=== PATIENT | male | born 1995 | race Hispanic/Latino ===

== ENCOUNTER 2018-09-27 09:40 | Emergency (ER) | payer OTHER ==
[2018-09-27 09:45] VITALS: BP 129/72
--- NOTE | 2018-09-27 11:37 | Emergency Department Report ---
ED Extremity Problem HPI - General Chief complaint: Extremity Problem,Nontraumatic Stated complaint: SWOLLEN R LEG Time Seen by Provider: 09/27/18 11:27 Source: patient Mode of arrival: Ambulatory Limitations: No Limitations - History of Present Illness Initial comments: 23-year-old man who was seen prior for right leg swelling and redness. Patient reports that he's been taking his antibiotics as prescribed. Patient reports that he was walking near the hospital and wanted to come in to have a Band-Aid. Patient feels that he has improved. Patient has no known drug allergies. Past medical history of hepatitis C. MD Complaint: extremity pain, extremity swelling Location: right History of Same: Yes Severity scale (0 -10): 6 Consistency: intermittent Associated Symptoms: denies other symptoms - Related Data Allergies Allergy/AdvReac Type Severity Reaction Status Date / Time No Known Allergies Allergy Unverified 09/27/18 09:44 ED Review of Systems ROS: Stated complaint: SWOLLEN R LEG Other details as noted in HPI Comment: All other systems reviewed and negative ED Past Medical Hx - Past Medical History Previous Medical History?: Yes Additional medical history: Hep C - Surgical History Past Surgical History?: No - Social History Smoking Status: Never Smoker Substance Use Type: None ED Physical Exam - General Limitations: No Limitations General appearance: alert, in no apparent distress - Head Head exam: Present: atraumatic, normocephalic - Eye Eye exam: Present: normal appearance - ENT ENT exam: Present: mucous membranes moist - Expanded Lower Extremity Exam Right Upper Leg exam: Present: normal inspection Knee exam: Present: normal inspection Lower Leg exam: Present: normal inspection Ankle exam: Present: normal inspection Foot/Toe exam: Present: full ROM, erythema (mild patient has been outlined of his cellulitis and the swelling and redness is decreasing. There is no purulent discharge from the wound.). Absent: tenderness, swelling ED Course Vital Signs 09/27/18 09:44 Temperature 98 F Pulse Rate 72 Respiratory 18 Rate Blood Pressure 129/72 O2 Sat by Pulse 100 Oximetry ED Medical Decision Making - Medical Decision Making Patient has been evaluated by this provider fast track. Discussed the patient to continue taking antibiotics. Recommend patient to obtain his Band-Aids from the App in the [employer] store and not coming back to the emergency room chest for Band-Aids as this is very costly to him. Patient verbalizes understanding. Critical care attestation.: If time is entered above; I have spent that time in minutes in the direct care of this critically ill patient, excluding procedure time. ED Disposition Clinical Impression: Ankle edema Disposition: - TO HOME OR SELFCARE Is pt being admited?: No Does the pt Need Aspirin: No Condition: Stable Additional Instructions: Continue with antibiotics and pain medication. Change her dressing daily. Follow up with a primary care provider for symptoms persist or gets worse. Referrals: LAURA PETERSON MD [Primary Care Provider] - 3-5 Days
== END 2018-09-27 12:48 | disposition home or self-care (01) ==
LOC: ED 09:40
DX: R60.0 Localized edema (principal); Z88.1 Allergy status to other antibiotic agents
CPT/HCPCS: 99281

== ENCOUNTER 2018-09-27 22:13 | Emergency (ER) | payer OTHER ==
--- NOTE | 2018-09-27 22:32 | Emergency Department Report ---
Blank Doc - Documentation Documentation: 23 y/o male with multiple visits here. Come back for depression. Denies any SI./HI.
[2018-09-28 00:03] LABS: Bacteria,Urine 1+ /HPF (Negative); Bilirubin,Urine NEG (Negative); Blood,Urine NEG (Negative); Color,Urine Yellow (Yellow); Mucus,Urine FEW /HPF
[2018-09-28 00:23] LABS: Amphetamine Screen,Urine PRESUMPTIVE NEGATIVE; Benzodiazepines Screen,Urine PRESUMPTIVE NEGATIVE; Cocaine Screen,Urine PRESUMPTIVE NEGATIVE; Methadone Screen,Urine PRESUMPTIVE NEGATIVE; Opiate Screen,Urine PRESUMPTIVE NEGATIVE
[2018-09-28] MEDS ORDERED: ANTIBIOTIC OINT TP STA (00:36)
[2018-09-28 00:37] LABS: Cannabinoid Screen,Urine PRESUMPTIVE POSITIVE
--- NOTE | 2018-09-28 00:37 | Emergency Department Report ---
ED General Adult HPI - General Chief complaint: Psych Stated complaint: MH/DEPRESSION/ANXIETY Time Seen by Provider: 09/27/18 23:51 Source: patient, RN notes reviewed, old records reviewed Mode of arrival: Ambulatory Limitations: No Limitations - History of Present Illness Initial comments: Also referenced alternative medical record number; [id number] PATIENT: delmar quintero This is a 23-year-old gentleman, not known to this provider previously, reportedly visiting from [place], who presents to the emergency room with a complaint of painless anxiety. He is not homicidal or suicidal. He has no hallucinations. He has no access to firearms. Apparently the symptoms are intermittent, and do not have exacerbating or relieving factors of the patient is aware of. He denies physical pain at this time. -: Gradual Severity scale (0 -10): 0 Consistency: intermittent Improves with: none Worsens with: none - Related Data Allergies Allergy/AdvReac Type Severity Reaction Status Date / Time amoxicillin Allergy Swelling Verified 09/27/18 22:18 ED Review of Systems ROS: Stated complaint: MH/DEPRESSION/ANXIETY Other details as noted in HPI Constitutional: denies: fever Eyes: denies: eye discharge ENT: denies: epistaxis Respiratory: denies: cough Cardiovascular: denies: chest pain Musculoskeletal: denies: back pain Skin: rash, other (skin avulsion to left posterior Achilles region) Neurological: denies: weakness Psychiatric: anxiety, depression. denies: homicidal thoughts, suicidal thoughts ED Past Medical Hx - Past Medical History Previous Medical History?: Yes Hx Psychiatric Treatment: Yes (Depression) Additional medical history: Hep C - Surgical History Past Surgical History?: No - Social History Smoking Status: Never Smoker Substance Use Type: None ED Physical Exam - General Limitations: No Limitations General appearance: alert, anxious - Head Head exam: Present: atraumatic, normocephalic - Eye Eye exam: Present: normal appearance, EOMI. Absent: nystagmus - ENT ENT exam: Present: normal exam, normal orophraynx, mucous membranes moist, normal external ear exam - Neck Neck exam: Present: normal inspection, full ROM. Absent: tenderness, meningismus - Respiratory Respiratory exam: Present: normal lung sounds bilaterally. Absent: respiratory distress - Cardiovascular Cardiovascular Exam: Present: regular rate, normal rhythm, normal heart sounds. Absent: bradycardia, tachycardia, irregular rhythm, systolic murmur, diastolic murmur, rubs, gallop - GI/Abdominal GI/Abdominal exam: Present: soft. Absent: distended, tenderness, guarding, rebound, rigid, pulsatile mass - Rectal Rectal exam: Present: deferred - Extremities Exam Extremities exam: Present: normal inspection (on the left posterior hero, there is an area of skin avulsion. There is no pus, streaking, there is no palpable cord, and there is negative Homans sign.), full ROM, other (2+ pulses noted in the bilateral upper, lower extremities. Compartments soft. No long bony tenderness. The pelvis is stable.). Absent: tenderness, calf tenderness - Back Exam Back exam: Present: normal inspection, full ROM. Absent: tenderness, CVA tenderness (R), paraspinal tenderness, vertebral tenderness - Neurological Exam Neurological exam: Present: alert, oriented X3, normal gait, other (Extraocular movements intact. Tongue midline. No facial droop. Facial sensation intact to light touch in the V1, V2, V3 distribution bilaterally. 5 and 5 strength in 4 extremities.. Sensation is intact to light touch in 4 extremities.). Absent: motor sensory deficit - Psychiatric Psychiatric exam: Present: anxious. Absent: homicidal ideation, suicidal ideation - Skin Skin exam: Present: warm, dry, intact, normal color. Absent: rash ED Course Vital Signs 09/27/18 09/27/18 22:19 22:29 Temperature 98.5 F 98.5 F Pulse Rate 94 H 94 H Respiratory 18 Rate Blood Pressure 116/73 116/73 O2 Sat by Pulse 99 Oximetry ED Medical Decision Making - Lab Data Vital Signs 09/27/18 09/27/18 22:19 22:29 Temperature 98.5 F 98.5 F Pulse Rate 94 H 94 H Respiratory 18 Rate Blood Pressure 116/73 116/73 O2 Sat by Pulse 99 Oximetry Lab Results 09/27/18 09/27/18 09/27/18 Range/Units 22:59 22:59 23:25 Urine Color Yellow (Yellow) Urine Turbidity Clear (Clear) Urine pH 6.0 (5.0-7.0) Ur Specific [place] 1.021 (1.003-1.030) Urine Protein 30 mg/dl (Negative) mg/dL Urine Glucose (UA) Neg (Negative) mg/dL Urine Ketones Neg (Negative) mg/dL Urine Blood Neg (Negative) Urine Nitrite Neg (Negative) Urine Bilirubin Neg (Negative) Urine Urobilinogen 4.0 (<2.0) mg/dL Ur Leukocyte Esterase Neg (Negative) Urine WBC (Auto) 1.0 (0.0-6.0) /HPF Urine RBC (Auto) 4.0 (0.0-6.0) /HPF U Epithel Cells (Auto) 1.0 (0-13.0) /HPF Urine Bacteria (Auto) 1+ (Negative) /HPF Urine Mucus Few /HPF Salicylates (2.8-20.0) mg/dL Urine Opiates Screen Urine Methadone Screen Acetaminophen < 5.0 L (10.0-30.0) ug/mL Ur Barbiturates Screen Ur Phencyclidine Scrn Ur Amphetamines Screen U Benzodiazepines Scrn Urine Cocaine Screen U Marijuana (THC) Screen Drugs of Abuse Note Plasma/Serum Alcohol < 0.01 (0-0.07) % 09/27/18 09/28/18 Range/Units 23:25 00:00 Urine Color (Yellow) Urine Turbidity (Clear) Urine pH (5.0-7.0) Ur Specific [place] (1.003-1.030) Urine Protein (Negative) mg/dL Urine Glucose (UA) (Negative) mg/dL Urine Ketones (Negative) mg/dL Urine Blood (Negative) Urine Nitrite (Negative) Urine Bilirubin (Negative) Urine Urobilinogen (<2.0) mg/dL Ur Leukocyte Esterase (Negative) Urine WBC (Auto) (0.0-6.0) /HPF Urine RBC (Auto) (0.0-6.0) /HPF U Epithel Cells (Auto) (0-13.0) /HPF Urine Bacteria (Auto) (Negative) /HPF Urine Mucus /HPF Salicylates < 0.3 L (2.8-20.0) mg/dL Urine Opiates Screen Presumptive negative Urine Methadone Screen Presumptive negative Acetaminophen (10.0-30.0) ug/mL Ur Barbiturates Screen Presumptive negative Ur Phencyclidine Scrn Presumptive negative Ur Amphetamines Screen Presumptive negative U Benzodiazepines Scrn Presumptive negative Urine Cocaine Screen Presumptive negative U Marijuana (THC) Screen Presumptive positive Drugs of Abuse Note Disclamer Plasma/Serum Alcohol (0-0.07) % - Medical Decision Making Differential diagnosis, including but not limited to: Anxiety, subacute left foot wound Assessment and plan: 23-year-old patient with reported anxiety. He is not homicidal or suicidal, he is clinically sober, and he walks with a steady gait. The patient does not meet 1013 criteria. The patient will be given outpatient resources to follow up with psychiatry. He is also counseled to participate in self calming techniques, and he will be given outpatient resources to follow up. There is no palpable cord, this is a negative Homans sign, he has a subacute wound on his left lower extremity, clinically doubt cellulitis, ischemia managed with supportive care. Do not suspect DVT at this time. Critical care attestation.: If time is entered above; I have spent that time in minutes in the direct care of this critically ill patient, excluding procedure time. ED Disposition Clinical Impression: General medical exam, Wound of skin Disposition: TO HOME OR SELFCARE Is pt being admited?: No Does the pt Need Aspirin: No Condition: Stable Additional Instructions: Continue current outpatient medications. Wash the foot wound with gentle soap and water at least once every 24 hours. Keep the wound dry, covered otherwise, and apply bacitracin, which may be purchased [id number], once every 12-24 hours. Please follow up with the primary care doctor or the wound care center for the left foot wound within the next 3-4 weeks. Please follow up with any of the local outpatient psychiatric facilities for articulate complaint of depression and anxiety. Return to the emergency room right away with new, worsening or different symptoms. Referral Recommendations: 1. [facility] Address: [address], [place] [address] Hours: Open M-F 8AM 5PM 2. [facility] Address: [address] [place] [address] Hours: Open M-T 9AM8PM 3. [facility] Address: [address], [place] [address] Hours: M-F 8AM 1PM 4. [facility] Hours: 24 Hours Contact for assistance: [address] [facility] National Suicide Prevention Lifeline www.suicidepreventionlifeline.org (352) 034-TALK (6913) [facility] National Helpline (697) 283-HELP (2215) [place] [facility] service in [place], [place] Address: [address], [place] [address] , [place] [address] / Referrals[facility] [Provider Group] - 3-5 Days [facility] [Outside] - 3-5 Days [facility] [Outside] - 3-5 Days
[2018-09-28 02:22] VITALS: BP 122/71
== END 2018-09-28 02:20 | disposition home or self-care (01) ==
LOC: EEVIPCON 22:13 → ED 22:13
DX: T14.8XXA Other injury of unspecified body region, initial encounter (principal); F32.9 Major depressive disorder, single episode, unspecified; Z88.1 Allergy status to other antibiotic agents; X58.XXXA Exposure to other specified factors, initial encounter; Y93.9 Activity, unspecified; Y92.89 Other specified places as the place of occurrence of the external cause; Y99.8 Other external cause status
CPT/HCPCS: 36415; 80307; 81001; 99283; G0480; 80320

== ENCOUNTER 2018-09-29 03:40 | Emergency (ER) | payer OTHER ==
[2018-09-29 03:48] VITALS: BP 119/87
[2018-09-29] MEDS ORDERED: IBUPROFEN PO ONE (03:59)
[2018-09-29] MEDS ORDERED: BACTRIM DS PO ONE (03:59)
--- NOTE | 2018-09-29 05:24 | Emergency Department Report ---
ED General Adult HPI - General Chief complaint: Extremity Injury, Lower Stated complaint: LEG AND FOOT PAIN Time Seen by Provider: 09/29/18 03:58 Source: patient Mode of arrival: Ambulatory Limitations: No Limitations - History of Present Illness Initial comments: pt is a 23 y/o wm with who presents for bilat foot pain and blister, pt was homeless and advises that he could not do daily foot care but has housing now, request refill for abx , there has bee no fall injury or trauma, pt remain ambulatory to baseline there are no open wound or blisters note at this time. Onset/Timin -: month(s) Location: lower extremity Severity scale (0 -10): 7 Quality: burning Consistency: constant Improves with: none Worsens with: movement Treatments Prior to Arrival: none - Related Data Previous Rx's Medication Instructions Recorded Last Taken Type Ibuprofen 800 mg PO 3XW #12 tablet 09/29/18 Unknown Rx Sulfamethoxazole/Trimethoprim 1 each PO BID 10 Days #20 tablet 09/29/18 Unknown Rx [Bactrim DS TAB] Terbinafine 1% (Nf) [LamISIL AT 1 applicatio TP QDAY 14 Days #1 09/29/18 Unknown Rx (NF)] tube Allergies Allergy/AdvReac Type Severity Reaction Status Date / Time amoxicillin Allergy Swelling Verified 09/27/18 22:18 ED Review of Systems ROS: Stated complaint: LEG AND FOOT PAIN Other details as noted in HPI Constitutional: denies: chills, fever Eyes: denies: eye pain, eye discharge, vision change ENT: denies: ear pain, throat pain Respiratory: denies: cough, shortness of breath, wheezing Cardiovascular: denies: chest pain, palpitations Endocrine: no symptoms reported Gastrointestinal: denies: abdominal pain, nausea, diarrhea Genitourinary: denies: urgency, dysuria Musculoskeletal: denies: back pain, joint swelling, arthralgia Skin: other (tinea bilat feet ). denies: rash, lesions Neurological: as per HPI Psychiatric: denies: anxiety, depression Hematological/Lymphatic: denies: easy bleeding, easy bruising ED Past Medical Hx - Past Medical History Previous Medical History?: Yes Hx Psychiatric Treatment: Yes (Depression, anxiety and panic attacks) Additional medical history: Hep C - Surgical History Past Surgical History?: No - Social History Smoking Status: Former Smoker Substance Use Type: Marijuana - Medications Home Medications: Home Medications Medication Instructions Recorded Confirmed Last Taken Type Ibuprofen 800 mg PO 3XW #12 tablet 09/29/18 Unknown Rx Sulfamethoxazole/Trimethoprim 1 each PO BID 10 Days #20 tablet 09/29/18 Unknown Rx [Bactrim DS TAB] Terbinafine 1% (Nf) [LamISIL AT 1 applicatio TP QDAY 14 Days #1 09/29/18 Unknown Rx (NF)] tube ED Physical Exam - General Limitations: No Limitations General appearance: alert, in no apparent distress - Head Head exam: Present: atraumatic, normocephalic - Eye Eye exam: Present: normal appearance, PERRL, EOMI Pupils: Present: normal accommodation - ENT ENT exam: Present: mucous membranes moist - Neck Neck exam: Present: normal inspection - Respiratory Respiratory exam: Present: normal lung sounds bilaterally. Absent: respiratory distress, wheezes, stridor, chest wall tenderness - Cardiovascular Cardiovascular Exam: Present: regular rate, normal rhythm, normal heart sounds. Absent: systolic murmur, diastolic murmur, rubs, gallop - GI/Abdominal GI/Abdominal exam: Present: soft, normal bowel sounds, bruit. Absent: distended, tenderness, pulsatile mass, hernia - Rectal Rectal exam: Present: deferred - Extremities Exam Extremities exam: Present: tenderness (bilat feet ). Absent: pedal edema, joint swelling, calf tenderness, other (both with tinea bilat feet with moderate cellulitis ) - Back Exam Back exam: Present: normal inspection, full ROM, muscle spasm. Absent: tenderness, CVA tenderness (L), rash noted - Neurological Exam Neurological exam: Present: alert, oriented X3, CN II-XII intact, normal gait, reflexes normal - Psychiatric Psychiatric exam: Present: normal affect, normal mood - Skin Skin exam: Present: warm, dry, intact, normal color. Absent: rash ED Course Vital Signs 09/29/18 09/29/18 03:43 04:08 Temperature 97.6 F Pulse Rate 73 Respiratory 18 20 Rate Blood Pressure 119/87 O2 Sat by Pulse 99 Oximetry ED Medical Decision Making - Medical Decision Making this is bilat tinea, plan lamasil, bactrim,- pt is pcn allergic, pt verbalized agreement and understanding of same , there is no open wound at this time, mild erythema distal pulse intact , inspector filter tip < 3 sec bilat pt is ambulatory gait is steady. Critical care attestation.: If time is entered above; I have spent that time in minutes in the direct care of this critically ill patient, excluding procedure time. ED Disposition Clinical Impression: Tinea pedis of both feet, Cellulitis of foot Disposition: - TO HOME OR SELFCARE Is pt being admited?: No Does the pt Need Aspirin: No Condition: Stable Instructions: Tinea Pedis (ED) Prescriptions: Sulfamethoxazole/Trimethoprim [Bactrim DS TAB] 1 each PO BID 10 Days #20 tablet Ibuprofen 800 mg PO 3XW #12 tablet Terbinafine 1% (Nf) [LamISIL AT (NF)] 1 applicatio TP QDAY 14 Days #1 tube Referrals: [facility] [Outside] - 3-5 Days Forms: Work/School Release Form(ED) Time of Disposition: 05:34
== END 2018-09-29 05:45 | disposition home or self-care (01) ==
LOC: ED 03:40
DX: B35.3 Tinea pedis (principal); F12.10 Cannabis abuse, uncomplicated; F32.9 Major depressive disorder, single episode, unspecified; F41.9 Anxiety disorder, unspecified; F41.0 Panic disorder [episodic paroxysmal anxiety]; Z88.1 Allergy status to other antibiotic agents
CPT/HCPCS: 99282

== ENCOUNTER 2018-09-30 01:05 | Emergency (ER) | payer OTHER ==
[2018-09-30 01:31] VITALS: BP 127/88
--- NOTE | 2018-09-30 03:14 | Emergency Department Report ---
Chief Complaint: Extremity Injury, Lower Stated Complaint: PANIC ATTACK/INFECTION Time Seen by Provider: 09/30/18 03:04 - HPI History of Present Illness: 23-year-old male has come back to the emergency room from being discharged on 09/29/2018 for reporting infection to the right lower leg. Patient was seen and treated yesterday for the same. Patient is then placed on Bactrim and terbinafine and ibuprofen. - Exam Vital Signs: Vital Signs 09/30/18 01:25 Temperature 98 F Pulse Rate 95 H Respiratory 18 Rate Blood Pressure 127/88 O2 Sat by Pulse 99 Oximetry MSE screening note: Focused history and physical exam performed. Due to findings the following was ordered: Patient is to take his medications as prescribed. ED Medical Decision Making - Medical Decision Making Patient needs to follow-up with her primary care provider. Complete his antibiotics as prescribed. ED Disposition for MSE Clinical Impression: Tinea pedis of both feet, Wound of skin Disposition: DC-01 TO HOME OR SELFCARE Is pt being admited?: No Does the pt Need Aspirin: No Condition: Stable Instructions: Tinea Pedis (ED) Additional Instructions: Complete antibiotics and chronic medications as prescribed on 09/29/2018. Follow up with mental health provider. Referrals: LAURA PETERSON MD [Primary Care Provider] - 3-5 Days [facility] [Outside] - 3-5 Days
== END 2018-09-30 03:12 | disposition home or self-care (01) ==
LOC: ED 01:05
DX: B35.3 Tinea pedis (principal)
CPT/HCPCS: 99282

== ENCOUNTER 2018-10-01 01:37 | Emergency (ER) | payer OTHER ==
[2018-10-01 01:42] VITALS: BP 119/77
--- NOTE | 2018-10-01 02:31 | XRay Report ---
PROCEDURE: XR ANKLE 2V RT TECHNIQUE: 2 views of the right ankle. HISTORY: Right ankle pain and swelling. COMPARISONS: None available. FINDINGS: Normal osseous mineralization. There is mild bimalleolar soft tissue swelling. The ankle mortise appe ars congruent. Suggestive small joint effusion. No significant degenerative change or findings of inflammatory arthropathy. No talar dome osteochondr al injury. IMPRESSION: Mild soft tissue swelling, no acute osseous abnormality. This document is electronically signed by Kiran Ortega DO., Oct 01 2018 02:29:00 AM ET
--- NOTE | 2018-10-01 03:58 | Emergency Department Report ---
ED Extremity Problem HPI - General Chief complaint: Extremity Injury, Lower Stated complaint: ANKLE INJURY Time Seen by Provider: 10/01/18 03:00 Source: patient Mode of arrival: Ambulatory Limitations: No Limitations - History of Present Illness Initial comments: Pt is a 23 yo male who presents to the ED with c/o right ankle pain and edema that began a week ago. The patient states he had a fall a week ago. He states he has continued to walk on the leg which has caused pain. He denies any previous injury. He denies any numbness or weakness. He denies any PMHx or daily medications. - Related Data Previous Rx's Medication Instructions Recorded Last Taken Type Ibuprofen 800 mg PO Q6HR PRN #12 tablet 10/01/18 Unknown Rx Allergies Allergy/AdvReac Type Severity Reaction Status Date / Time amoxicillin Allergy Swelling Verified 09/27/18 22:18 ED Review of Systems ROS: Stated complaint: ANKLE INJURY Other details as noted in HPI Comment: All other systems reviewed and negative ED Past Medical Hx - Past Medical History Previous Medical History?: Yes Hx Psychiatric Treatment: Yes (Depression, anxiety and panic attacks) Additional medical history: Hep C - Surgical History Past Surgical History?: No - Social History Smoking Status: Never Smoker Substance Use Type: None - Medications Home Medications: Home Medications Medication Instructions Recorded Confirmed Last Taken Type Ibuprofen 800 mg PO Q6HR PRN #12 tablet 10/01/18 Unknown Rx ED Physical Exam - General Limitations: No Limitations General appearance: alert, in no apparent distress - Head Head exam: Present: atraumatic, normocephalic - Eye Eye exam: Present: normal appearance - ENT ENT exam: Present: mucous membranes moist - Extremities Exam Extremities exam: Present: other (edema present to the right ankle greater on the lateral malleolus, no TTP of the bilateral malleoli, the foot or the digits on the right side, able to move the toes, neurovascularly intact, pt has pain with flexion of the right ankle) - Neurological Exam Neurological exam: Present: alert, oriented X3 - Psychiatric Psychiatric exam: Present: normal affect, normal mood - Skin Skin exam: Present: warm, dry, intact ED Course Vital Signs 10/01/18 01:41 Temperature 97.9 F Pulse Rate 78 Respiratory 16 Rate Blood Pressure 119/77 O2 Sat by Pulse 98 Oximetry ED Medical Decision Making - Radiology Data Radiology results: report reviewed PROCEDURE: XR ANKLE 2V RT TECHNIQUE: 2 views of the right ankle. HISTORY: Right ankle pain and swelling. COMPARISONS: None available. FINDINGS: Normal osseous mineralization. There is mild bimalleolar soft tissue swelling. The ankle mortise appears congruent. Suggestive small joint effusion. No significant degenerative change or findings of inflammatory arthropathy. No talar dome osteochondral injury. IMPRESSION: Mild soft tissue swelling, no acute osseous abnormality. This document is electronically signed by Kiran Ortega DO., Oct 01 2018 02:29:00 AM ET - Medical Decision Making Pt is a 23 yo male who presents to the ED with c/o right ankle pain and edema that began a week ago. The patient states he had a fall a week ago. He states he has continued to walk on the leg which has caused pain. He denies any previous injury. He denies any numbness or weakness. He denies any PMHx or daily medications. XR of the right ankle shows Mild soft tissue swelling, no acute osseous abnormality. on examination pt has pain upon flexion, no TTP of the bony processes, neurovascularly intact. Will give pt ankle splint and crutches. Will have pt follow up with an orthopedic NELLI either Dr. Agosto or at the [facility]. Will have pt follow up with primary care doctor in the next 2-3 days. Will give list of community resources. Prescribed anti-inflammatory. Advised to ice, rest, and keep elevated. Return to the emergency room for any new or worsening symptoms. Critical care attestation.: If time is entered above; I have spent that time in minutes in the direct care of this critically ill patient, excluding procedure time. ED Disposition Clinical Impression: Ankle edema Right ankle injury Qualifiers: Encounter type: initial encounter Qualified Code(s): S99.911A - Unspecified injury of right ankle, initial encounter Disposition: DC- TO HOME OR SELFCARE Is pt being admited?: No Does the pt Need Aspirin: No Condition: Stable Instructions: Ankle Sprain (ED), Ankle Stirrup Splint (ED) Additional Instructions: Please take medication as prescribed. Please use ice, rest, elevation. Follow up with an orthopedic doctor NELLI either Dr. Agosto or at the [facility]. Follow up with a primary care doctor in the next 2-3 days. Return to the emergency room for any new or worsening symptoms. Prescriptions: Ibuprofen 800 mg PO Q6HR PRN #12 tablet PRN Reason: Pain, Moderate (4-6) Referrals: RACH AGOSTO MD [Staff Physician] - [facility] LAURA BRAGA MD [Primary Care Provider] - 2-3 Days berta, sandra [Other] - [facility] Time of Disposition: 04:02 Print Language: TURKMEN
== END 2018-10-01 04:23 | disposition home or self-care (01) ==
LOC: ED 01:37
DX: S99.911A Unspecified injury of right ankle, initial encounter (principal); R60.9 Edema, unspecified; F32.9 Major depressive disorder, single episode, unspecified; F41.9 Anxiety disorder, unspecified; W18.30XA Fall on same level, unspecified, initial encounter; Y93.89 Activity, other specified; Y92.89 Other specified places as the place of occurrence of the external cause; Y99.8 Other external cause status

== ENCOUNTER 2018-10-01 18:15 | Emergency (ER) | payer OTHER ==
--- NOTE | 2018-10-01 18:57 | Emergency Department Report ---
Chief Complaint: Medical Clearance Stated Complaint: FOOT INFECTION/SWELLING Time Seen by Provider: 10/01/18 18:53 - HPI History of Present Illness: 23 y/o who has had multiple visits this for same issue. Patient reports that he has a LE infection. Patient Has had Rx for abx and anti-fungal. - ROS Review of Systems: No fever no chills. Leg redness. - Exam Vital Signs: Alert and oriented time 3. NAD Leg non eryth non swelling. ambulating well. MSE screening note: Focused history and physical exam performed. Due to findings the following was ordered: discharge home with banaid and to f/u with PCP. ED Disposition for MSE Clinical Impression: Wound of skin Disposition: DC- TO HOME OR SELFCARE Is pt being admited?: No Does the pt Need Aspirin: No Condition: Stable Referrals: [facility] [Outside] - 3-5 Days [facility] [Outside] - 3-5 Days [facility] [Outside] - 3-5 Days
== END 2018-10-01 19:00 | disposition home or self-care (01) ==
LOC: ED 18:15
DX: T81.49XA Infection following a procedure, other surgical site, initial encounter (principal); Y92.89 Other specified places as the place of occurrence of the external cause
CPT/HCPCS: 99281

== ENCOUNTER 2018-10-03 08:02 | Emergency (ER) | payer OTHER ==
[2018-10-03 08:13] VITALS: BP 122/81
--- NOTE | 2018-10-03 08:37 | Emergency Department Report ---
Chief Complaint: Laceration/Recheck/Suture Stated Complaint: LT ARM CUT Time Seen by Provider: 10/03/18 08:28 - HPI History of Present Illness: Has multiple self inflicted cuts that are old to L forearm and wants to make sure they are not infected States no SI/HI, was inpatient psych last month and is now well Does admit to being here multiple times under different names, stating these are his other identifications States he is planning to go back home to [place] this weekend and wanted the cuts covered. - ROS Review of Systems: All systems reviewed, negative other than as in HPI. - Exam Vital Signs: Vital Signs 10/03/18 08:05 Temperature 97.5 F L Pulse Rate 77 Respiratory 16 Rate Blood Pressure 122/81 O2 Sat by Pulse 100 Oximetry Physical Exam: Alert, oriented, nontoxic in appearance Multiple old cuts to forearm, none appear recent as all have full scar formation Answers all questions appropriately, not acutely psychotic. No signs of infection, normal mood and affect. MSE screening note: Focused history and physical exam performed. Due to findings the following was ordered: None Pt presents requesting only to have chronic appearing cuts covered. He has been here multiple times recently. Query multiple personality disorder However, A&O, conversant appropriately there is NO indication for workup or 1013 at this time, no psychosis, he is not suicidal or homicidal, not disheveled in appearance no threat to self or others based on todays evaluation I did discuss that he needs to be seeing outpatient providers for chronic issues but that we are always here for acute concerns. He verbalized understanding. ED Disposition for MSE Clinical Impression: Scarring, General medical exam Disposition: - TO HOME OR SELFCARE Is pt being admited?: No Does the pt Need Aspirin: No Condition: Good Instructions: Anxiety (ED) Referrals: [facility] [Provider Group] - 3-5 Days Time of Disposition: 08:39
== END 2018-10-03 09:02 | disposition home or self-care (01) ==
LOC: ED 08:02
DX: S51.812A Laceration without foreign body of left forearm, initial encounter (principal); Y28.8XXA Contact with other sharp object, undetermined intent, initial encounter; Y93.89 Activity, other specified; Y92.89 Other specified places as the place of occurrence of the external cause; Y99.8 Other external cause status
CPT/HCPCS: 99282